=== PATIENT | male | born 1990 | race Caucasian/White ===

== ENCOUNTER 2016-08-12 22:34 | Emergency (ER) | payer OTHER ==
[~2016-08-12] VITALS: Ht 180.3 cm; Wt 61.2 kg
[~2016-08-12 22:34] MED LIST: MOBIC15 MG PO; VIBRAMYCIN 100100 MG PO
--- NOTE | 2016-08-12 22:40 | ED PSYCHIATRIC COMPLAINT ---
History of Present Illness General Chief Complaint: Psychiatric Related Complaint Stated Complaint: +SI Source: patient, EMS, police Exam Limitations: no limitations Vital Signs & Intake/Output Vital Signs & Intake/Output Vital Signs Date Time Temp Pulse Resp B/P B/P Pulse O2 O2 Flow FiO2 Mean Ox Delivery Rate 08/13 1117 Room Air 08/13 0608 97.8 85 16 122/54 99 Room Air 08/12 2236 96.5 89 18 128/59 97 Room Air ED Intake and Output 08/13 0000 08/12 1200 Intake Total Output Total Balance Patient 135 lb Weight Weight Estimated Measurement Method Allergies Coded Allergies: NO KNOWN ALLERGIES (09/24/12) Reconcile Medications Doxycycline (Vibramycin 100 MG Cap) 100 MG CAP 1 TAB PO BID INFN Meloxicam (Mobic) 15 MG TAB 1 TAB PO DAILY PRN PAIN Triage Note: PT BIBA ON POLICE PAPER. PT MADE +SI COMMENTS ON [employer]. PT STATES HE USED TO SNORT HEROIN, AND RECENTLY RELAPSED AND STARTED INJECTING HEROIN. PT ARRIVES CALM AND COOPERATIVE. SECURITY AT BEDSIDE FOR WANDING. CHANGED INTO SCRUBS. AT BEDSIDE FOR EVALUATION. Triage Nurses Notes Reviewed? yes HPI: Patient brought in by ambulance on a piece paper for suicidal ideations. Patient denies any plan. Patient states he recently started using heroin again and it made him so depressed that he just wants it all to end. Patient has never attempted suicide before. He denies any homicidal ideations. Patient denies any hallucinations. (GLORIA GREENBERG,LONG Nelson) Past History Travel History Traveled to [place] past 21 day No Medical History Any Pertinent Medical History? none Tetanus Vaccine: 01/17/13 Surgical History Surgical History: non-contributory Psychosocial History What is your primary language Nauruan Tobacco Use: Current Daily Use Daily Tobacco Use Amount/Type: => 5 Cigarettes daily ETOH Use: occasional use Illicit Drug Use: heroin Family History Hx Contributory? No (GLORIA GREENBERG,LONG Nelson) Review of Systems Review of Systems Constitutional: Reports: no symptoms. EENTM: Reports: no symptoms. Respiratory: Reports: no symptoms. Cardiovascular: Reports: no symptoms. GI: Reports: no symptoms. Genitourinary: Reports: no symptoms. Musculoskeletal: Reports: no symptoms. Skin: Reports: no symptoms. Neurological/Psychological: Reports: see HPI, depressed. Hematologic/Endocrine: Reports: no symptoms. Immunologic/Allergic: Reports: no symptoms. All Other Systems: Reviewed and Negative (GLORIA GREENBERG,LONG Nelson) Physical Exam Physical Exam General Appearance: well developed/nourished, mild distress Head: atraumatic Eyes: Bilateral: PERRL, EOMI. Ears, Nose, Throat: normal pharynx, normal ENT inspection, hearing grossly normal Neck: normal inspection, supple Respiratory: normal breath sounds Cardiovascular: regular rate/rhythm Gastrointestinal: soft, non-tender Extremities: normal range of motion Neurological/Psychiatric: no motor/sensory deficits, awake, alert, calm, oriented x 3 Appearance/Memory/Insight: appropriate appearance, appropriate insight Behavoir/Eye Contact/Speech: cooperative, normal speech, good eye contact Thoughts/Hallucinations: normal thought pattern, no apparent hallucination, auditory hallucinations Skin: intact, normal color, warm/dry SAD PERSONS Done? CRISIS CONSULT OBTAINED (GLORIA GREENBERG,LONG Nelson) Progress Differential Diagnosis: drug intoxication, drug overdose, drug withdrawal, electrolyte abnormality Plan of Care: Orders Procedure Date/time Status Continuous Observation Monitor 08/12 2236 Active URINE DRUGS OF ABUSE 08/12 2236 Complete ETHANOL 08/12 2236 Complete COMPREHENSIVE METABOLIC PANEL 08/12 2236 Complete CBC WITHOUT DIFFERENTIAL 08/12 2236 Complete ED CRISIS PSYCH CONSULT 08/12 2236 Active Laboratory Tests 08/13/16 0450: Methadone Screen 44, Barbiturate Screen < 60, Ur Phencyclidine Scrn < 6.00, Amphetamines Screen 177, U Benzodiazepines Scrn < 85, Urine Cocaine Screen > 1000 H, Urine Cannabis Screen > 80.00 H 08/12/16 2303: Anion Gap 11, Estimated GFR > 60, BUN/Creatinine Ratio 16.0, Glucose 94, Calcium 9.9, Total Bilirubin 1.1, AST 40, ALT 37, Alkaline Phosphatase 52, Total Protein 7.8, Albumin 4.7, Globulin 3.1, Albumin/Globulin Ratio 1.5, CBC w Diff NO MAN DIFF REQ, RBC 4.78, MCV 91.7, MCH 30.5, RDW 13.4, MPV 7.9, Gran % 70.1, Lymphocytes % 21.8, Monocytes % 6.5, Eosinophils % 1.1, Basophils % 0.5, Absolute Granulocytes 8.1 H, Absolute Lymphocytes 2.5, Absolute Monocytes 0.8 H, Absolute Eosinophils 0.1, Absolute Basophils 0.1, PUBS MCHC 33.2, Serum Alcohol < 10.0 Hand-Off Endorsed To: BO GREENBERG,JACIEL Zheng Endorsed Time: 0700 Pending: consult (GLORIA GREENBERG,LONG Nelson) Comments: 08/13/2016 7:13:42 AM patient signed out to me by Dr. Sevilla at shift change coordinator. (BO GREENBERG,JACIEL Zheng) Departure Departure Disposition: STILL A PATIENT Condition: Stable Referrals: PATIENT HAS NO PRIMARY CARE DR (PCP/Family) Departure Forms: Customer Survey General Discharge Information (GLORIA GREENBERG,LONG Nelson) Departure Clinical Impression Primary Impression: Depression with suicidal ideation Secondary Impressions: Cocaine abuse, Heroin abuse, Marijuana abuse Additional Instructions: follow up as outlined by crisis. consider detox program. notify your primary care doctor of this emergency department visit and treatment plan. Return if any concerns or sudden worsening. (BO GREENBERG,JACIEL Zheng)
[2016-08-12 23:08] LABS: ABSOLUTE BASOPHIL COUNT 0.1 /CUMM (0.0-0.2); ABSOLUTE EOSINOPHIL COUNT 0.1 /CUMM (0.0-0.7); ABSOLUTE GRANULOCYTE CT 8.1 /CUMM (1.4-6.5); ABSOLUTE LYMPH COUNT 2.5 /CUMM (1.2-3.4); ABSOLUTE MONOCYTE COUNT 0.8 /CUMM (0.10-0.60); BASOPHIL % 0.5 % (0.0-2.0); EOSINOPHIL % 1.1 % (0-5); GRANULOCYTE % 70.1 % (42.2-75.2); HEMATOCRIT 43.8 % (42-52); MEAN CORPUSCULAR HGB 30.5 PG (27.0-31.0); MEAN CORPUSCULAR HGB CONC 33.2 G/DL (33.0-37.0); MEAN CORPUSCULAR VOLUME 91.7 FL (80.0-94.0); MEAN PLATELET VOLUME 7.9 FL (7.4-10.4); PLATELET COUNT 182 /CUMM (130-400); RBC DISTRIBUTION WIDTH 13.4 % (11.5-14.5); RED BLOOD CELL CT 4.78 /CUMM (4.70-6.10); WHITE BLOOD CELL COUNT 11.6 /CUMM (4.8-10.8)
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
[2016-08-13 11:36] VITALS: BP 114/65
== END 2016-08-13 11:36 ==
LOC: ERH 22:34
PROVIDERS: Emergency Medicine
DX: F32.9 Major depressive disorder, single episode, unspecified (principal); R45.851 Suicidal ideations; F14.10 Cocaine abuse, uncomplicated; F11.10 Opioid abuse, uncomplicated; F12.10 Cannabis abuse, uncomplicated
CPT/HCPCS: 80307; G0463; G0480